=== PATIENT | male | born 1970 | race Hispanic/Latino ===

== ENCOUNTER 2018-01-08 01:18 | Emergency (ER) | payer MEDICAID ==
[2018-01-08 01:44] LABS: APPEARANCE,URINE Clear (CLEAR); BILIRUBIN,URINE Negative (NEGATIVE); COLOR,URINE Yellow (YELLOW); GLUCOSE, URINE (UA) Negative (NEGATIVE); KETONES,URINE Negative (NEGATIVE); LEUKOCYTE ESTERASE ,URINE Negative (NEGATIVE); NITRATE,URINE Negative (NEGATIVE); OCCULT BLOOD,URINE Negative (NEGATIVE); PH,URINE 5.5 (5.0-8.0); PROTEIN,URINE Negative (NEGATIVE); UROBILINOGEN,URINE 0.2 mg/dL (0.2-1.0)
[2018-01-08 01:55] LABS: BASOPHILS % (AUTO) 0.7 % (0.0-5.0); EOSINOPHILS % (AUTO) 3.6 % (0.0-8.0); LYMPHOCYTES % (AUTO) 40.1 % (21.0-51.0); MEAN CORPUSCULAR HEMOGLOBIN 29.3 pg (27.0-33.0); MEAN CORPUSCULAR VOLUME 86.3 fL (79-99); MONOCYTES % (AUTO) 7.7 % (3.0-13.0); NEUTROPHILS % (AUTO) 47.9 % (40.0-77.0); PLATELET COUNT (AUTO) 306 K/uL (130-400); RED BLOOD CELL COUNT(AUTO) 4.29 MIL/uL (4.50-6.20); WHITE BLOOD COUNT (AUTO) 10.3 K/uL (4.8-10.8)
[2018-01-08 01:59] LABS: AMPHET/METH SCREEN,URINE NEGATIVE (NEGATIVE); BARBITURATE SCREEN, URINE NEGATIVE (NEGATIVE); BENZODIAZEPINES SCREEN,URINE NEGATIVE (NEGATIVE); CANNABINOID SCREEN,URINE NEGATIVE (NEGATIVE); COCAINE SCREEN,URINE NEGATIVE (NEGATIVE); OPIATE SCREEN,URINE NEGATIVE (NEGATIVE); PHENCYCLIDINE SCREEN,URINE NEGATIVE (NEGATIVE)
[2018-01-08 02:02] LABS: POTASSIUM 3.8 mmol/L (3.5-5.1)
[2018-01-08 02:03] LABS: INR 0.98 (0.85-1.15); PARTIAL THROMBOPLASTIN TIME 29.8 SEC (26.3-35.5); PROTHROMBIN TIME 10.3 SEC (9.6-11.6)
[2018-01-08 02:06] LABS: ALBUMIN 3.4 g/dL (3.5-5.0); BILIRUBIN,DIRECT 0.1 mg/dL (0.0-0.3); BILIRUBIN,TOTAL 0.5 mg/dL (0.2-1.0); TOTAL PROTEIN, SERUM 7.1 g/dL (6.0-8.3)
[2018-01-08] MEDS ORDERED: ONDANSETRON HCL 4 MG/2 ML VIAL ONE (02:10)
[2018-01-08] MEDS ORDERED: SODIUM CHLORIDE 0.9% 1000ML 1,000 ML IV ONE (02:11)
[2018-01-08] MEDS ORDERED: KETOROLAC TROMETHAMINE 30MG/ML ONE (02:11)
== END 2018-01-08 02:53 | disposition home or self-care (01) ==
LOC: EDH 01:18
DX: R10.31 Right lower quadrant pain (principal); I10 Essential (primary) hypertension; Z98.890 Other specified postprocedural states; Z90.49 Acquired absence of other specified parts of digestive tract
CPT/HCPCS: 36415; 74176; 80048; 80076; 80305; 81003; 82550; 83690; 84484; 85025; 85610; 85730; 93005; 96361; 96374; 96375; 99285; J1885; J2405; J7030

== ENCOUNTER 2018-05-19 12:55 | Emergency (ER) | payer MEDICAID ==
[~2018-05-19 12:55] MED LIST: AMIT25TA9 PO; CETI5TAB12 PO; ESOM40CA54 PO; LISI-613 PO; MONT10TA24 PO; MULTIVITAMIN PO; PANT40TA25 PO; TRAM50TA4 PO
[2018-05-19] MEDS ORDERED: HYDROCODONE/ACETAMINOPHEN 10/325 MG TAB ONE (13:47)
== END 2018-05-19 16:57 | disposition home or self-care (01) ==
LOC: EDH 12:55
DX: S40.012A Contusion of left shoulder, initial encounter (principal); S60.212A Contusion of left wrist, initial encounter; S80.02XA Contusion of left knee, initial encounter; S20.412A Abrasion of left back wall of thorax, initial encounter; S30.810A Abrasion of lower back and pelvis, initial encounter; S30.811A Abrasion of abdominal wall, initial encounter; I10 Essential (primary) hypertension; X58.XXXA Exposure to other specified factors, initial encounter; Y93.89 Activity, other specified; Y92.098 Other place in other non-institutional residence as the place of occurrence of the external cause; Y99.8 Other external cause status
CPT/HCPCS: 73030; 73110; 73562; 73630

== ENCOUNTER 2018-09-15 16:45 | Emergency (ER) | payer MEDICAID ==
[2018-09-15] MEDS ORDERED: LIDOCAINE HCL-MPF 1% 2ML VIAL ONE (17:09)
[2018-09-15] MEDS ORDERED: CEFTRIAXONE SODIUM 1 GM ONE (17:09)
== END 2018-09-15 17:21 | disposition home or self-care (01) ==
LOC: EDH 16:45
DX: L02.415 Cutaneous abscess of right lower limb (principal); L03.115 Cellulitis of right lower limb; I10 Essential (primary) hypertension; Z90.49 Acquired absence of other specified parts of digestive tract; Z90.89 Acquired absence of other organs; Z98.890 Other specified postprocedural states
CPT/HCPCS: 96372; 99283; J0696; J3490

== ENCOUNTER → 2018-11-26 | Outpatient (CLI) | payer MEDICAID | END | disposition home or self-care (01) | LOC: RAH 08:24 | PROVIDERS: ATTEND Family Medicine | DX: M17.0 Bilateral primary osteoarthritis of knee (principal) | CPT/HCPCS: 73562 ==

== ENCOUNTER 2018-12-02 16:03 | Emergency (ER) | payer MEDICAID ==
[2018-12-02] MEDS ORDERED: KETOROLAC TROMETHAMINE 60 MG/2 ML VIAL ONE (16:19)
[2018-12-02] MEDS ORDERED: DEXAMETHASONE SOD PHOSPHATE 10MG/ML 1ML VIAL ONE (16:19)
== END 2018-12-02 16:51 | disposition home or self-care (01) ==
LOC: EDH 16:03
DX: M54.6 Pain in thoracic spine (principal); I10 Essential (primary) hypertension
CPT/HCPCS: 96372 ×2; 99284; J1100; J1885

== ENCOUNTER 2018-12-22 14:00 | Emergency (ER) | payer MEDICAID ==
[2018-12-22] MEDS ORDERED: SULFAMETHOX-TMP DS 800/160 TAB ONE (16:29)
[2018-12-22] MEDS ORDERED: CEPHALEXIN 500 MG CAPSULE ONE (16:29)
[2018-12-22] MEDS ORDERED: IBUPROFEN 600 MG TABLET ONE (16:30)
== END 2018-12-22 16:40 | disposition home or self-care (01) ==
LOC: EDH 14:00
DX: S61.401A Unspecified open wound of right hand, initial encounter (principal); I10 Essential (primary) hypertension; Z98.890 Other specified postprocedural states; Z98.84 Bariatric surgery status; W26.0XXA Contact with knife, initial encounter; Y93.89 Activity, other specified; Y92.89 Other specified places as the place of occurrence of the external cause; Y99.8 Other external cause status
CPT/HCPCS: 73130

== ENCOUNTER 2019-02-14 08:20 | Emergency (ER) | payer MEDICAID ==
[2019-02-14] MEDS ORDERED: LIDOCAINE HCL 1% 20 ML VIAL ONE (08:43)
== END 2019-02-14 10:26 | disposition home or self-care (01) ==
LOC: EDH 08:20
DX: L02.413 Cutaneous abscess of right upper limb (principal); I10 Essential (primary) hypertension
CPT/HCPCS: 10060

== ENCOUNTER 2019-02-16 15:11 | Emergency (ER) | payer MEDICAID | END 2019-02-16 15:32 | disposition home or self-care (01) | LOC: EDH 15:11 | DX: L03.113 Cellulitis of right upper limb (principal); M19.90 Unspecified osteoarthritis, unspecified site; I10 Essential (primary) hypertension ==

== ENCOUNTER → 2019-02-26 | Outpatient (CLI) | payer MEDICAID | END | disposition home or self-care (01) | LOC: OIH 08:27 | PROVIDERS: ATTEND Family Medicine | DX: Z01.818 Encounter for other preprocedural examination (principal) | CPT/HCPCS: 71046 ==

== ENCOUNTER 2019-04-06 10:16 | Emergency (ER) | payer MEDICAID | END 2019-04-06 10:36 | disposition home or self-care (01) | LOC: EDH 10:16 | DX: Z48.01 Encounter for change or removal of surgical wound dressing (principal); I10 Essential (primary) hypertension; M19.90 Unspecified osteoarthritis, unspecified site; Z98.890 Other specified postprocedural states | CPT/HCPCS: 99281 ==

== ENCOUNTER → 2019-05-07 | Outpatient (CLI) | payer MEDICAID | END | disposition home or self-care (01) | LOC: OIH 10:39 | PROVIDERS: ATTEND Family Medicine | DX: I10 Essential (primary) hypertension (principal) | CPT/HCPCS: 71046 ==

== ENCOUNTER 2019-12-30 16:27 | Emergency (ER) | payer MEDICAID ==
[~2019-12-30 16:27] MED LIST changes: -MONT10TA24 PO; +MONT10TA26 PO
== END 2019-12-30 17:33 | disposition home or self-care (01) ==
LOC: EDH 16:27
DX: L02.414 Cutaneous abscess of left upper limb (principal); I10 Essential (primary) hypertension; M19.90 Unspecified osteoarthritis, unspecified site; Z98.890 Other specified postprocedural states
CPT/HCPCS: 82948; 99282

== ENCOUNTER → 2020-05-11 | Outpatient (CLI) | payer MEDICAID ==
[~2020-05-11] MED LIST changes: +DIATR MEGLU/DIATRIZOATE SODIUM 30 ML BOTTLE ONE; -PANT40TA25 PO; +PANT40TA54 PO
== END | disposition home or self-care (01) ==
LOC: RAH 08:31
PROVIDERS: ATTEND Internal Medicine Gastroenterology
DX: K21.9 Gastro-esophageal reflux disease without esophagitis (principal); R10.13 Epigastric pain; R11.2 Nausea with vomiting, unspecified; K44.9 Diaphragmatic hernia without obstruction or gangrene; Z98.84 Bariatric surgery status
CPT/HCPCS: 74240; Q9963

== ENCOUNTER → 2022-08-23 | Outpatient (CLI) | payer MEDICAID ==
[~2022-08-23] MED LIST changes: -DIATR MEGLU/DIATRIZOATE SODIUM 30 ML BOTTLE ONE; -LISI-613 PO; +LISI20TA24 PO; +MONT-39 PO; -MONT10TA26 PO
== END | disposition home or self-care (01) ==
LOC: RAH 11:12
PROVIDERS: ATTEND Neurological Surgery
DX: M16.0 Bilateral primary osteoarthritis of hip (principal)
CPT/HCPCS: 73521

== ENCOUNTER → 2022-11-10 | Emergency (ER) | payer MEDICAID ==
[~2022-11-10] VITALS: Ht 177.8 cm; Wt 145.1 kg
[2022-11-10 07:49] VITALS: BP 123/80
[2022-11-10 08:26] LABS: APPEARANCE,URINE CLEAR (CLEAR); BILIRUBIN,URINE NEGATIVE (NEGATIVE); COLOR,URINE LIGHT-YELLOW (YELLOW); GLUCOSE, URINE (UA) NEGATIVE (NEGATIVE); KETONES,URINE NEGATIVE (NEGATIVE); LEUKOCYTE ESTERASE ,URINE 250 Leu/uL (NEGATIVE); NITRATE,URINE NEGATIVE (NEGATIVE); OCCULT BLOOD,URINE NEGATIVE (NEGATIVE); PH,URINE 5.5 (5.0-8.0); PROTEIN,URINE NEGATIVE (NEGATIVE); UROBILINOGEN,URINE 0.2 mg/dL (0.2-1.0)
[2022-11-10 08:33] LABS: BACTERIA,URINE FEW /HPF (None Seen); MUCUS,URINE RARE LPF (None Seen); SQUAMOUS EPITHELIAL CELL,UR RARE /HPF (0-2); WBC,URINE 26-50 /HPF (0-1)
[2022-11-10 08:54] LABS: BASOPHILS % (AUTO) 0.9 % (0.0-5.0); HEMATOCRIT 34.1 % (42-54); LYMPHOCYTES % (AUTO) 43.2 % (21.0-51.0); MEAN CORPUSCULAR HEMOGLOBIN 28.8 pg (27.0-33.0); MEAN CORPUSCULAR HGB CONC 31.4 g/dL (32.0-36.0); MEAN CORPUSCULAR VOLUME 91.7 fL (79-99); MONOCYTES % (AUTO) 11.3 % (3.0-13.0); NEUTROPHILS % (AUTO) 39.7 % (40.0-77.0); PLATELET COUNT (AUTO) 290 K/uL (130-400); RED BLOOD CELL COUNT(AUTO) 3.72 MIL/uL (4.50-6.20); RED CELL DISTRIBUTION WIDTH 12.5 % (11.0-15.5); WHITE BLOOD COUNT (AUTO) 6.6 K/uL (4.8-10.8)
[2022-11-10 09:13] LABS: ALANINE AMINOTRANSFERASE 22 U/L (12-78); ALBUMIN 3.4 g/dL (3.5-5.0); ASPARTATE AMINOTRANSFERASE 20 U/L (10-37); CARBON DIOXIDE 27 mmol/L (21-32); CHLORIDE 106 mmol/L (101-111); GLOMERULAR FILTR. RATE CALC 91 mL/min (>90); GLUCOSE,RANDOM 100 mg/dL (70-105); POTASSIUM 4.4 mmol/L (3.5-5.1); SODIUM SERUM 137 mmol/L (136-145); TOTAL PROTEIN, SERUM 6.5 g/dL (6.0-8.3); UREA NITROGEN, BLOOD 15 mg/dL (7-18)
[2022-11-10 10:28] LABS: LIPASE < 50 U/L (114-286)
== END ==
LOC: EDH 07:45
DX: R10.9 Unspecified abdominal pain (principal); Z53.21 Procedure and treatment not carried out due to patient leaving prior to being seen by health care provider
CPT/HCPCS: 36415; 80053; 81001; 83690; 85025; 87077; 87088; 87186; 99281

== ENCOUNTER 2024-04-07 06:44 | Day surgery (SDC) | payer MEDICAID ==
[~2024-04-07] VITALS: Ht 177.8 cm; Wt 158.3 kg
[2024-04-07] VITALS (12 sets, daily range): BP systolic 100–140; BP diastolic 55–91; PULSE 51–70; RESP 16–18; TEMP 96.9–97.9
[~2024-04-07 06:44] MED LIST changes: -ESOM40CA54 PO; +ESOM40CA66 PO
[2024-04-07] MEDS ORDERED: SODIUM TETRADECYL SULFATE 30 MG/ML 2 ML VIAL IV ONE (07:00)
[2024-04-07] MEDS ORDERED: 0.9%NACL 1000ML 1,000 ML IV ONE (07:27)
[2024-04-07] MEDS ORDERED: MONT-39 PO (07:46)
[2024-04-07] MEDS ORDERED: FURO20TA4 PO (07:46)
[2024-04-07] MEDS ORDERED: TAMS-1 PO (07:46)
[2024-04-07] MEDS ORDERED: BUSP15 PO (07:46)
[2024-04-07] MEDS ORDERED: TRAZ-187 PO (07:46)
[2024-04-07] MEDS ORDERED: CETI10TA57 PO (07:46)
[2024-04-07] MEDS ORDERED: AMIT50TA3 PO (07:46)
[2024-04-07] MEDS ORDERED: GABA-529 PO (07:46)
[2024-04-07] MEDS ORDERED: HYDR-4068 PO (07:46)
[2024-04-07] MEDS ORDERED: HYDR12.54 PO (07:46)
[2024-04-07] MEDS ORDERED: MELOXICAM (07:46)
[2024-04-07] MEDS ORDERED: MELOXICAM PO (07:47)
[2024-04-07] MEDS ORDERED: LIDOCAINE PF 100MG/5ML (2%) SYRINGE 5ML ONE (07:56)
[2024-04-07] MEDS ORDERED: proPOFol 10 MG/ML 20ML VIAL IV ONE (07:56)
== END 2024-04-07 09:22 | disposition home or self-care (01) ==
LOC: DAH 06:44
PROVIDERS: ATTEND Surgery
DX: K21.9 Gastro-esophageal reflux disease without esophagitis (principal); R13.10 Dysphagia, unspecified; M19.90 Unspecified osteoarthritis, unspecified site; K22.70 Barrett's esophagus without dysplasia; I10 Essential (primary) hypertension; G47.30 Sleep apnea, unspecified; Z96.651 Presence of right artificial knee joint; Z90.49 Acquired absence of other specified parts of digestive tract; Z98.84 Bariatric surgery status; Z79.899 Other long term (current) drug therapy
CPT/HCPCS: 43236; J7030 ×2; J3490 ×3; A4620; A4215 ×2; A4223; A4657; A4222; A4221; A4663; A4606; J2001; J2704